=== PATIENT | female | born 2005 | race Caucasian/White ===

== ENCOUNTER 2023-05-03 15:39 | Emergency (ER) | payer BC ==
[2023-05-03] MEDS ORDERED: predniSONE 20 MG Tab PO ONE (16:02)
== END 2023-05-03 16:47 | disposition home or self-care (01) ==
LOC: MW.ED 15:39
DX: G51.0 Bell's palsy (principal)
CPT/HCPCS: 99283; A9270

== ENCOUNTER 2024-03-30 16:07 | Emergency (ER) | payer BC ==
[2024-03-30] MEDS ORDERED: Sodium Chloride 0.9% 2.5 ML Syringe FLUSH PRN (16:33)
[2024-03-30] MEDS ORDERED: Sodium Chloride 0.9% 10 ML Syringe FLUSH PRN (16:33)
[2024-03-30] MEDS: Sodium Chloride 0.9% 1,000 ML IV ONE (17:00)
[2024-03-30 17:17] LABS: BASOPHILS ABSOLUTE AUTO 0.03 K/uL (0.00-0.20); BASOPHILS PERCENT AUTO 0.2 % (0.0-1.0); EOSINOPHILS ABSOLUTE AUTO 0.03 K/uL (0.00-0.45); EOSINOPHILS PERCENT AUTO 0.2 % (0.0-6.0); HEMATOCRIT 40.3 % (37.0-47.0); HEMOGLOBIN 14.2 g/dL (12.0-16.0); IMMATURE GRAN ABSOLUTE AUTO 0.04 K/uL (0.00-0.05); IMMATURE GRAN PERCENT AUTO 0.3 % (0.0-0.4); LYMPHOCYTES ABSOLUTE AUTO 1.89 K/uL (1.00-4.80); LYMPHOCYTES PERCENT AUTO 13.5 % (24.0-44.0); MEAN CORPUSCULAR HEMOGLOBIN 30.9 pg (28.0-32.0); MEAN CORPUSCULAR HGB CONC 35.2 g/dL (32.0-36.0); MEAN CORPUSCULAR VOLUME 87.8 fL (83.0-99.0); MEAN PLATELET VOLUME 9.2 fL (9.4-12.3); MONOCYTES ABSOLUTE AUTO 0.91 K/uL (0.00-0.80); MONOCYTES PERCENT AUTO 6.5 % (0.0-8.0); NEUTROPHILS ABSOLUTE AUTO 11.06 K/uL (1.80-7.70); NEUTROPHILS PERCENT AUTO 79.3 % (41.0-71.0); PLATELET COUNT,PLT 206 K/uL (150-400); RED BLOOD CELL COUNT 4.59 M/uL (4.10-5.30); WHITE BLOOD CELL COUNT,WBC 13.96 K/uL (3.9-11.3)
[2024-03-30] MEDS: Ondansetron 4 MG/2 ML SDV IVPUSH ONE (17:18)
[2024-03-30] MEDS: Pantoprazole 40 MG in Sodium Chloride 0.9% 10 ML IVPUSH ONE (17:18)
[2024-03-30 17:19] LABS: GLUCOSE,URINE NEGATIVE (NEGATIVE); KETONES,URINE 15 mg/dL (NEGATIVE); LEUKOCYTE ESTERASE,URINE TRACE (NEGATIVE); NITRITE,URINE NEGATIVE (NEGATIVE); OCCULT BLOOD,URINE LARGE (NEGATIVE); PROTEIN,URINE NEGATIVE (NEGATIVE)
[2024-03-30] MEDS: Ketorolac 30 MG/ML SDV IVPUSH ONE (17:19)
[2024-03-30 17:26] LABS: APPEARANCE,URINE HAZY; BILIRUBIN,URINE SMALL (NEGATIVE); COLOR,URINE DARK YELLOW
[2024-03-30 17:36] LABS: BACTERIA,URINE FEW (NEGATIVE); EPITHELIAL CELLS,URINE MODERATE (NONE-FEW); MUCUS,URINE MODERATE (NONE-MOD); RBC,URINE 0-2 (0-2/HPF)
[2024-03-30 17:44] LABS: A/G RATIO 0.9 (0.9-1.6); ALBUMIN 3.8 g/dL (3.4-5.0); BILIRUBIN TOTAL 0.8 mg/dL (0.2-1.0); CALCIUM 9.2 mg/dL (8.5-10.1); CARBON DIOXIDE,CO2 26.5 mmol/L (21.0-32.0); CREATININE 0.8 mg/dL (0.6-1.0); EST CRCL DRUG DOSING (CG) 96.86 mL/min; POTASSIUM,K 3.6 mmol/L (3.5-5.1); PROTEIN TOTAL,TP 7.8 g/dL (6.4-8.2)
== END 2024-03-30 20:02 | disposition home or self-care (01) ==
LOC: MW.ED 16:07
DX: K80.20 Calculus of gallbladder without cholecystitis without obstruction (principal); N30.01 Acute cystitis with hematuria; Z75.8 Other problems related to medical facilities and other health care; I10 Essential (primary) hypertension; E11.9 Type 2 diabetes mellitus without complications
CPT/HCPCS: 36415; 76705; 80053; 81001; 81025; 83690; 85025; 96361; 96374; 96375; 99284; J1885; J2405; J2470; J3490; J7030

== ENCOUNTER 2024-04-17 09:09 | Day surgery (SDC) | payer BC ==
[~2024-04-17 09:09] MED LIST: ceFAZolin 2 GM in Sodium Chloride 0.9% 50 ML IV ONE
[2024-04-17] MEDS: Scopalamine 1mg/3day Transdermal Patch TOP ONE (09:30)
[2024-04-17] MEDS: Lactated Ringers 1,000 ML IV SCH (09:34)
[2024-04-17] MEDS ORDERED: Ropivacaine 0.5% 5 MG/ML 30 ML SDV ONE (10:20)
[2024-04-17] MEDS ORDERED: ceFAZolin 1 GM Vial ONE (10:20)
[2024-04-17] MEDS ORDERED: Bupivacaine 0.25% 30 ML SDV ONE (10:20)
[2024-04-17] MEDS ORDERED: Bupivacaine 0.5% 30 ML SDV ONE (10:20)
[2024-04-17] MEDS ORDERED: Lidocaine 2% 5 ML SDV ONE (10:23)
[2024-04-17] MEDS ORDERED: Sugammadex Sodium 200 MG/2 ML VIAL IV ONE (10:23)
[2024-04-17] MEDS ORDERED: Ketorolac 30 MG/ML SDV ONE (10:23)
[2024-04-17] MEDS ORDERED: Dexamethasone 4 MG/ML 5 ML MDV ONE (10:23)
[2024-04-17] MEDS ORDERED: Rocuronium Bromide 50 MG/5 ML Syringe ONE (10:23)
[2024-04-17] MEDS ORDERED: Ondansetron 4 MG/2 ML SDV ONE (10:23)
[2024-04-17] MEDS ORDERED: Ketamine HCL/NACL, ISO-OSM 50 MG/5 ML Syringe ONE (10:24)
[2024-04-17] MEDS ORDERED: Water For Injection, Sterile 20 ML ONE (10:24)
[2024-04-17] MEDS ORDERED: Propofol 200 MG/20 ML SDV ONE (10:24)
[2024-04-17] MEDS ORDERED: dexmedeTOMIDine HCl 200 MCG/2 ML SDV ONE (10:24)
[2024-04-17] MEDS ORDERED: fentaNYL 100 MCG/2 ML SDV ONE (10:24)
[2024-04-17] MEDS ORDERED: ceFAZolin 2 GM Vial ONE (11:08)
[2024-04-17] MEDS ORDERED: Indocyanine Green 25 MG SDV ONE (11:10)
[2024-04-17] MEDS ORDERED: Morphine 4 MG/ML Syringe IVPUSH PRN (12:46)
[2024-04-17] MEDS ORDERED: Lactated Ringers 1,000 ML IV SCH (13:00)
[2024-04-17] MEDS: Acetaminophen/HYDROcodone 325-5 MG Tab PO PRN (14:22)
== END 2024-04-17 14:47 | disposition home or self-care (01) ==
LOC: MW.SDS 09:09
PROVIDERS: ATTEND Surgery
DX: K80.10 Calculus of gallbladder with chronic cholecystitis without obstruction (principal)
CPT/HCPCS: 47563; 64488; 81025; A9270; J0131; J0665; J0690; J1100; J1885; J2405; J2704; J2795; J3010; J3490; J7120; 00790

== ENCOUNTER 2025-04-25 04:56 | Inpatient (IN) | payer BC ==
[2025-04-25] MEDS ORDERED: Butorphanol 1 MG/ML SDV IVPUSH PRN (05:33)
[2025-04-25] MEDS ORDERED: Sodium Chloride 0.9% 2.5 ML Syringe FLUSH PRN (05:33)
[2025-04-25] MEDS ORDERED: Terbutaline 1 MG/ML SDV SUBCUT PRN (05:33)
[2025-04-25] MEDS ORDERED: Ondansetron 4 MG/2 ML SDV IVPUSH PRN (05:33)
[2025-04-25] MEDS ORDERED: Water For Irrigation,Sterile 1,000 ML Container IRR PRN (05:33)
[2025-04-25] MEDS ORDERED: Sodium Chloride 0.9% 10 ML Syringe FLUSH PRN (05:33)
[2025-04-25] MEDS ORDERED: Carboprost Tromethamine 250 MCG/1 mL Vial IM PRN (05:33)
[2025-04-25] MEDS ORDERED: Oxytocin/0.9 % Sodium Chloride 30 UNIT/500 ML BAG IV SCH (05:45)
[2025-04-25 06:18] LABS: MEAN PLATELET VOLUME 9.8 fL (9.4-12.3); NRBC ABSOLUTE 0.00 K/uL (0.00-0.02); NRBC PERCENT 0.0 /100WBC (0.0-0.2); PLATELET COUNT,PLT 149 K/uL (150-400); RED BLOOD CELL COUNT 3.61 M/uL (4.10-5.30); WHITE BLOOD CELL COUNT,WBC 8.29 K/uL (3.9-11.3)
[2025-04-25] MEDS: Lactated Ringers 1,000 ML IV SCH (06:28)
[2025-04-25] MEDS: Oxytocin/0.9 % Sodium Chloride 30 UNIT/500 ML BAG IV SCH (06:30)
[2025-04-25] MEDS ORDERED: ePHEDrine 50 MG/ML SDV IVPUSH PRN (07:15)
[2025-04-25] MEDS ORDERED: dexmedeTOMIDine HCl 200 MCG/2 ML SDV EPIDUR SCH (07:15)
[2025-04-25] MEDS: Ropivacaine HCl/PF 400 MG in Premix Bag 1 BAG EPIDUR SCH (14:05)
[2025-04-25] MEDS ORDERED: Lanolin 100% Cream 7 GM Tube TOP PRN (14:36)
[2025-04-25] MEDS ORDERED: Measles, Mumps & Rubella Vaccine 0.5 ML SDV SUBCUT ONE (14:36)
[2025-04-25 14:59] LABS: PH,UMBILICAL ARTERIAL 7.25 (7.18-7.38); PH,UMBILICAL VENOUS 7.44 (7.25-7.45)
[2025-04-25] MEDS: Witch Hazel Medicated Pads 40/Jar TOP PRN (20:37)
[2025-04-25] MEDS: Benzocaine/Menthol 20%-0.5% Spray 78 GM Cannister TOP PRN (20:38)
== END 2025-04-25 22:54 | disposition home or self-care (01) | DRG 560 ==
LOC: MW.OB 04:56 → OBSVTOIN 14:41
PROVIDERS: ADMIT Obstetrics & Gynecology; ATTEND Obstetrics & Gynecology
PROC: 10E0XZZ Delivery of Products of Conception, External Approach (ICD-10-PCS; principal; 2025-04-25)
PROC: 10907ZC Drainage of Amniotic Fluid, Therapeutic from Products of Conception, Via Natural or Artificial Opening (ICD-10-PCS; 2025-04-25)
PROC: 4A1HXCZ Monitoring of Products of Conception, Cardiac Rate, External Approach (ICD-10-PCS; 2025-04-25)
PROC: 3E033VJ Introduction of Other Hormone into Peripheral Vein, Percutaneous Approach (ICD-10-PCS; 2025-04-25)
DX: O36.5930 Maternal care for other known or suspected poor fetal growth, third trimester, not applicable or unspecified (principal); Z3A.37 37 weeks gestation of pregnancy; Z37.0 Single live birth; O99.62 Diseases of the digestive system complicating childbirth; K21.9 Gastro-esophageal reflux disease without esophagitis
CPT/HCPCS: 01967; 36415; 59025; 59409; 82803; 85027; 86592; 86850; 86900; 86901; A9270-GY; J2590; J2795; J7120